=== PATIENT | female | born 1950 | race Caucasian/White ===

== ENCOUNTER 2016-11-13 09:44 | Emergency (ER) | payer OTHER, MEDICAID ==
[~2016-11-13] VITALS: Ht 162.6 cm; Wt 73.8 kg
[~2016-11-13 09:44] MED LIST: ALBU8.5H8 INH; ASPI325T17 PO; ATOR20TA PO; BACL-19 PO; CARB1TAB47 PO; CIPR500T3 PO; DIAZ5TAB4 PO; FLUO40CA9 PO; IBUP-1222 PO; OXYC-302 PO; OXYC5CAP2 PO; QUET50TA5 PO; SOLI5TAB2 PO; TIOT18CA INH; ZOLP-413 PO; will bring list
[2016-11-13 10:09] LABS: HEMATOCRIT 36.9 % (34.6-47.8); HEMOGLOBIN 12.1 g/dL (11.7-16.4); WHITE BLOOD COUNT 9.7 x10^3/uL (3.4-10)
[2016-11-13 10:22] LABS: ASPARTATE AMINO TRANSFERASE 33 U/L (15-37); BLOOD UREA NITROGEN 12 mg/dL (7-18)
[2016-11-13 15:05] VITALS: BP 97/68
== END 2016-11-13 15:08 | disposition home or self-care (01) ==
LOC: ED 11:19
DX: N39.0 Urinary tract infection, site not specified (principal); G20 Parkinson's disease; N30.90 Cystitis, unspecified without hematuria; G35 Multiple sclerosis
CPT/HCPCS: 36415; 51702; 80053; 81001; 85025; 87086